=== PATIENT | male | born 1960 | race Caucasian/White ===

== ENCOUNTER 2020-08-08 23:42 | Observation (INO) | payer BC ==
[~2020-08-08] VITALS: Ht 180.3 cm; Wt 103.9 kg
[2020-08-09 00:43] LABS: BASOPHILS # (AUTO) 0.1 (0.0-0.1); BASOPHILS % 0.5 % (0.0-1.0); EOSINOPHILS # (AUTO) 0.3 (0.0-0.4); EOSINOPHILS % 2.4 % (0.0-6.0); HEMATOCRIT 42.6 % (38.2-49.6); HEMOGLOBIN 13.6 g/dL (14.0-18.0); LYMPHOCYTES # (AUTO) 1.9 (1.0-3.2); LYMPHOCYTES % 16.2 % (18.0-39.1); MEAN CORPUSCULAR HEMOGLOBIN 28.2 pg (28-32); MEAN CORPUSCULAR HGB CONC 31.9 g/dL (31-35); MEAN CORPUSCULAR VOLUME 88.2 fL (81-99); MONOCYTES % 8.8 % (4.4-11.3); NEUTROPHILS # (AUTO) 8.2 (2.1-6.9); NEUTROPHILS % 71.7 % (38.7-80.0); PLATELET COUNT 256 x10e3/uL (140-360); RED BLOOD COUNT 4.83 x10e6/uL (4.3-5.7); RED CELL DISTRIBUTION WIDTH 13.9 % (11.7-14.4)
[2020-08-09] MEDS ORDERED: SODIUM CHLORIDE 0.9% 1000ML 1,000 ML ONE (00:58)
[2020-08-09] MEDS ORDERED: METOPROLOL SUCCINATE 25 MG TAB XL PO ONE (01:00)
[2020-08-09] MEDS ORDERED: SODIUM CHLORIDE 0.9% 1000ML 1,000 ML IV SCH (01:00)
[2020-08-09 01:26] LABS: ALANINE AMINOTRANSFERASE 15 IU/L (0-55); ALKALINE PHOSPHATASE 106 IU/L (40-150); ANION GAP 17.4 mmol/L (8-16); BLOOD UREA NITROGEN 13 mg/dL (7-26); BUN/CREATININE RATIO 15 (6-25); CALCIUM 9.3 mg/dL (8.4-10.2); CARBON DIOXIDE 23 mmol/L (22-29); CHLORIDE 105 mmol/L (98-107); CREATINE KINASE 32 IU/L (30-200); CREATININE, SERUM 0.88 mg/dL (0.72-1.25); EST GLOMERULAR FILTRATION RATE > 60 ML/MIN (60-); GLUCOSE 106 mg/dL (74-118); POTASSIUM 3.4 mmol/L (3.5-5.1); SODIUM 142 mmol/L (136-145)
[2020-08-09] MEDS ORDERED: ASPIRIN 81 MG CHEW TAB PO ONE (01:30)
[2020-08-09 01:36] LABS: ALBUMIN < 0.4 g/dL (3.5-5.0); ALBUMIN/GLOBULIN RATIO 0.1 (0.8-2.0)
[2020-08-09 02:09] LABS: FREE THYROXINE INDEX 2.6349 (1.4-3.8); THYROID STIMULATING HORMONE 2.023 uIU/mL (0.350-4.940)
[2020-08-09] MEDS ORDERED: METOPROLOL TARTRATE INJ 1 MG/ML VIAL ONE (02:30)
[2020-08-09] MEDS ORDERED: METOPROLOL TARTRATE INJ 1 MG/ML VIAL IV ONE (02:30)
[2020-08-09 02:50] VITALS: BP 152/99
[2020-08-09 03:00] VITALS: BP 134/98
[2020-08-09 03:10] VITALS: BP 134/98
[2020-08-09 04:00] VITALS: BP 143/96
[2020-08-09 08:05] VITALS: BP 111/75
[2020-08-09] MEDS ORDERED: METOPROLOL SUCCINATE 25 MG TAB XL PO SCH (09:00)
[2020-08-09] MEDS ORDERED: POTASSIUM CHLORIDE 20 MEQ TAB CR PO ONE (09:23)
[2020-08-09 09:58] LABS: CREATINE KINASE 23 IU/L (30-200)
[2020-08-09 10:21] LABS: FREE THYROXINE INDEX 2.6235 (1.4-3.8); THYROID STIMULATING HORMONE 1.6 uIU/mL (0.350-4.940)
[2020-08-09 12:06] VITALS: BP 100/67
[2020-08-09] MEDS ORDERED: METOPROLOL SUCC25 MG (14:03)
== END 2020-08-09 15:23 | disposition home or self-care (01) ==
LOC: ER 23:57 → INTOOBSV 08-09 01:41 → ERHOLD 08-09 01:41 → IMCU 08-09 02:31
PROVIDERS: ADMIT Internal Medicine; ATTEND Internal Medicine
DX: I47.1 Supraventricular tachycardia (principal); R06.81 Apnea, not elsewhere classified; I10 Essential (primary) hypertension; I65.29 Occlusion and stenosis of unspecified carotid artery; Z20.828 Contact with and (suspected) exposure to other viral communicable diseases
CPT/HCPCS: 36415; 71045; 80053; 82550; 82553; 83880; 84436; 84443; 84479; 84484; 85025; 93005; 93306; 99284; G0378; J7030; U0002

== ENCOUNTER 2021-05-16 00:37 | Emergency (ER) | payer BC ==
[~2021-05-16] VITALS: Ht 180.3 cm; Wt 103.9 kg
[~2021-05-16 00:37] MED LIST: METOPROLOL SUCC25 MG
== END 2021-05-16 01:30 | disposition home or self-care (01) ==
LOC: ER 01:05
DX: R50.9 Fever, unspecified (principal); R05 Cough; U07.1 COVID-19; R53.81 Other malaise; I10 Essential (primary) hypertension
CPT/HCPCS: 99283; U0002

== ENCOUNTER 2021-05-16 07:16 | Emergency (ER) | payer BC ==
[~2021-05-16] VITALS: Ht 180.3 cm; Wt 103.9 kg
[2021-05-16] MEDS ORDERED: CASIRIVIMAB/IMDEVIMAB 10 ML in SODIUM CHLORIDE 0.9% 100 ML IV ONE (07:30)
== END 2021-05-16 08:40 | disposition home or self-care (01) ==
LOC: ER 07:48
DX: U07.1 COVID-19 (principal); I10 Essential (primary) hypertension
CPT/HCPCS: 99283; J7050